=== PATIENT | male | born 1945 | race Caucasian/White ===

== ENCOUNTER → 2017-07-17 | Outpatient (CLI) | payer MEDICARE ==
[~2017-07-17] MED LIST: ASPI81TA23 PO; CETI10CA3 PO; FAMO1TAB37 PO; IBUP1TAB5 PO; LEVO50TA4 PO; LISI10TA3 PO; SIMV40TA PO
[2017-07-17 12:04] LABS: AUTOMATED NEUTROPHIL # 3.5 TH/MM3 (1.8-7.7); BASOPHIL # 0.1 TH/MM3 (0-0.2); BASOPHIL % 1.4 % (0.0-2.0); EOSINOPHIL # 0.4 TH/MM3 (0-0.4); EOSINOPHIL % 5.1 % (0.0-4.0); HEMATOCRIT 44.8 % (39.0-51.0); HEMOGLOBIN 15.4 GM/DL (13.0-17.0); LYMPH % 30.5 % (9.0-44.0); LYMPHOCYTE # 2.2 TH/MM3 (1.0-4.8); MEAN CELL VOLUME 93.9 FL (80.0-100.0); MEAN CORPUSCULAR HEMOGLOBIN 32.4 PG (27.0-34.0); MEAN CORPUSCULAR HGB CONC 34.4 % (32.0-36.0); MEAN PLATELET VOLUME 9.7 FL (7.0-11.0); MONO % 13.9 % (0.0-8.0); NEUT % 49.1 % (16.0-70.0); PLATELET COUNT 168 TH/MM3 (150-450); RED BLOOD COUNT 4.77 MIL/MM3 (4.50-5.90); RED CELL DISTRIBUTION WIDTH 13.5 % (11.6-17.2); WHITE BLOOD COUNT 7.1 TH/MM3 (4.0-11.0)
[2017-07-17 12:04] LABS: BILIRUBIN, URINE NEG (NEG); BLOOD, URINE NEG (NEG); GLUCOSE,URINE NEG (NEG); KETONE, URINE NEG (NEG); NITRITE,URINE NEG (NEG); PH, URINE 5.5 (5.0-8.5); URINE COLOR LIGHT-YELLOW (YELLW/STRAW); URINE LEUKOCYTE ESTERASE NEG (NEG)
[2017-07-17 12:12] LABS: INTERNATIONAL NORMALIZED RATIO 1.1 RATIO; PROTHROMBIN TIME - PATIENT 10.7 SEC (9.8-11.6)
--- NOTE | 2017-07-17 12:17 | RADRPT ---
EXAM DATE/TIME: 07/17/2017 12:04 [facility] COMPARISON: No previous studies available for comparison. INDICATIONS : Evaluate for pneumonia, pneumothorax and communicable diseases. Pre-op CABG MEDICAL HISTORY : Hypertension. Hypercholesterolemia. SURGICAL HISTORY : Hernia repair ENCOUNTER: Initial ACUITY: 1 day PAIN SCORE: 0/10 LOCATION: chest FINDINGS: PA and lateral views of the chest demonstrate the lungs to be symmetrically aerated without evidence of mass, infiltrate or effusion. The cardiomediastinal contours are unremarkable. Osseous structure s are intact. CONCLUSION: No acute disease. Mustapha Vazquez MD on July 17, 2017 at 12:15 Board Certified Radiologist. This report was verified electronically.
[2017-07-17 12:22] LABS: BICARBONATE 27.7 MEQ/L (21.0-32.0); BLOOD UREA NITROGEN 13 MG/DL (7-18); CALCIUM 9.1 MG/DL (8.5-10.1); CHLORIDE 105 MEQ/L (98-107); CREATININE 0.98 MG/DL (0.60-1.30); GLOMERULAR FILTRATION RATE 76 ML/MIN (>89); GLUCOSE,FASTING 87 MG/DL (74-99); SODIUM (NA) 139 MEQ/L (136-145)
[2017-07-17 16:15] LABS: HEMOGLOBIN A1C 5.3 % (4.3-6.0)
--- NOTE | 2017-07-18 23:52 | EKG ---
Date Performed: 07/17/2017 Time Performed: 11:18:05 PTAGE: 72 years EKG: Sinus rhythm RIGHT BUNDLE BRANCH BLOCK ABNORMAL ECG NO PREVIOUS TRACING DOCTOR: Deshawn Khalil Interpretating Date/Time 07/18/2017 23:47:59
--- NOTE | 2017-07-19 09:23 | RSPPFT ---
DATE OF PROCEDURE: 07/17/17 COMMENTS: VOLUMES DYNAMIC: FVC and FEV1 normal. FLOWS: FEV1% normal, FEF 25-75 mildly reduced. IMPRESSION: Very mild terminal airflow obstruction.
== END ==
LOC: CPRE 10:43
PROVIDERS: ATTEND Thoracic Surgery (Cardiothoracic Vascular Surgery)
DX: Z01.812 Encounter for preprocedural laboratory examination (principal); Z01.810 Encounter for preprocedural cardiovascular examination; Z01.811 Encounter for preprocedural respiratory examination; I25.10 Atherosclerotic heart disease of native coronary artery without angina pectoris
CPT/HCPCS: 36415; 71046; 80048; 81001; 83036; 85025; 85610; 85730; 86850; 86900; 86901; 87640; 87641; 93005; 94010

== ENCOUNTER 2017-07-24 05:18 | Inpatient (IN) | payer MEDICARE ==
[2017-07-24] VITALS (9 sets, daily range): BP systolic 98–121; BP diastolic 53–72; PULSE 63–81; RESP 12–22; TEMP 97.9–98.8; O2SAT 95–98
[~2017-07-24] VITALS: Ht 175.3 cm; Wt 108.0 kg
[2017-07-24] MEDS ORDERED: METOPROLOL TARTRATE 25 MG TAB PO PRN (05:45)
[2017-07-24] MEDS ORDERED: SODIUM CHLORID 0.9% 500 ML IV PRN (05:45)
[2017-07-24] MEDS: LACTATED RINGER'S 1000 ML IV PRN ×2 (05:45→13:34)
[2017-07-24] MEDS ORDERED: DEXTROSE 50% IN WATER 50 ML VIAL(D50) IV PUSH PRN ×2 (05:45→14:00)
[2017-07-24] MEDS ORDERED: CHLORHEXIDINE GLUCONATE 2 % 1 PACK (2 CLOTHS) TOPICAL PRN (05:45)
[2017-07-24] MEDS: POVIDONE IODINE 5% (ANTISEPSIS KIT) 4 APPLICATIONS EACH NARE PRN ×3 (06:00→13:36)
[2017-07-24] MEDS: METOPROLOL TARTRATE 25 MG TAB PO SCH ×3 (06:10→13:36)
[2017-07-24] MEDS ORDERED: methylPREDNISolone SOD SUCC 125 MG/2 ML VIAL ONE (06:18)
[2017-07-24] MEDS ORDERED: HEPARIN SODIUM - SQ 10,000 UNITS/ML VIAL ONE ×4 (06:19→06:26)
[2017-07-24] MEDS ORDERED: VANCOMYCIN HCL 1000 MG VIAL ONE ×2 (06:19→06:26)
[2017-07-24] MEDS: VANCOMYCIN 1750 MG/NS 500 ML IV SCH ×6 (06:30→13:36)
[2017-07-24] MEDS ORDERED: INSULIN REGULAR 100 UNITS in NS 100 ML IV PRN (07:00)
[2017-07-24] MEDS: MUPIROCIN 2% OINT 22 GM TUBE EACH NARE SCH ×2 (09:00→21:00)
[2017-07-24] MEDS: PAPAVERINE 60 MG-NITROGLYCERIN 100 MCG-DILTIAZEM 100 MG in NS 100 ML IRRIGATION SCH ×12 (10:10→13:36)
[2017-07-24] MEDS: VANCOMYCIN 1000 MG in NS IRR BTL 1000 ML IRRIGATION SCH ×3 (10:11→13:36)
[2017-07-24] MEDS ORDERED: PHENYLEPHRINE HCL 10 MG/ML VIAL IV ONE (12:00)
[2017-07-24] MEDS ORDERED: ePHEDrine/NS 25 MG/5 ML SYRINGE IV ONE (12:00)
[2017-07-24] MEDS ORDERED: VECURONIUM BROMIDE 10 MG VIAL IV ONE (12:00)
[2017-07-24] MEDS ORDERED: PHENYLEPH/NS 1000 MCG/10 ML SYR IV ONE (12:00)
[2017-07-24] MEDS ORDERED: NITROGLYCERIN 50 MG/DEXTROSE 5% SOLN 250 ML BTL IV ONE (12:00)
[2017-07-24] MEDS ORDERED: LACTATED RINGER'S 1000 ML INJ 2,000 ML IV ONE (12:00)
[2017-07-24] MEDS ORDERED: SODIUM CHLORID 0.9% 500 ML INJ 500 ML IV ONE (12:00)
[2017-07-24] MEDS ORDERED: HEPARIN SODIUM - SQ 10,000 UNITS/ML VIAL OTHER ONE (12:00)
[2017-07-24] MEDS ORDERED: DEXMEDETOMIDINE HCL 200 MCG/2 ML VIAL IV ONE (12:00)
[2017-07-24] MEDS ORDERED: SODIUM BICARBONATE 8.4% INJ 50 MEQ/50 ML SYR IV ONE (12:00)
[2017-07-24] MEDS ORDERED: NORMOSOL R INJ 2,000 ML IV ONE (12:00)
[2017-07-24] MEDS ORDERED: MAGNESIUM SULFATE 1 GM/2 ML VIAL IV ONE (12:00)
[2017-07-24] MEDS ORDERED: NS 100 ML (PAB BAG) 100 ML IV ONE (12:00)
[2017-07-24] MEDS ORDERED: PROTAMINE SULFATE 250 MG/25 ML VIAL IV ONE (12:00)
[2017-07-24] MEDS ORDERED: SODIUM CHLOR 0.9% 250 ML INJ 250 ML IV ONE (12:00)
[2017-07-24] MEDS ORDERED: ACETAMINOPHEN 1000 MG/100 ML 100 ML IV ONE (12:19)
[2017-07-24] MEDS ORDERED: METOPROLOL TARTRATE 5 MG/5 ML VIAL IV PUSH PRN (12:30)
--- NOTE | 2017-07-24 12:38 | PD.OP ---
cc: Hugo Lemus MD Operative Report Date of Surgery: Jul 24, 2017 Preoperative Diagnosis: Postoperative Diagnosis: Procedure: 1. Urgent Off-pump Coronary Artery Bypass Grafting x 4 with Left Internal Mammary Artery (THOMAS) to the Left Anterior Descending (LAD), reverse saphenous vein graft to the Diagonal 1 (D1), reverse saphenous vein graft to the Obtuse Marginal 1 (OM1), reverse saphenous vein graft to the Posterolateral Branch ( RPLB) of the Right Coronary Artery (RCA) 2. Right Leg Endoscopic Vein [place] 3. Intraoperative Vein Mapping Surgeon: Hugo Lemus Skoog Operator(s): Sancho Youngblood Operation and Findings: PREPROCEDURE DIAGNOSES 1. Multi-Vessel Coronary Artery Disease. 2. Preserved Ventricular Function POSTPROCEDURE DIAGNOSES Same SURGICAL PROCEDURE 1. Urgent Off-pump Coronary Artery Bypass Grafting x 4 with Left Internal Mammary Artery (THOMAS) to the Left Anterior Descending (LAD), reverse saphenous vein graft to the Diagonal 1 (D1), reverse saphenous vein graft to the Obtuse Marginal 1 (OM1), reverse saphenous vein graft to the Posterolateral Branch ( RPLB) of the Right Coronary Artery (RCA) 2. Right Leg Endoscopic Vein [place] 3. Intraoperative Vein Mapping SURGEON Hugo Lemus MD EXPORT COORDINATOR IMELDA Esquivel ANESTHESIA General endotracheal LOCKER ROOM ATTENDANT BOBBY Miramontes MD PREPARATION ChloraPrep. COUNTS Needle, sponge, and instrument counts were correct. DRAINS Two 32-Welsh mediastinal tubes. COMPLICATIONS None. INDICATIONS FOR PROCEDURE The patient is a 72-year-old initially presenting with multi-vessel coronary artery disease. He is being brought to the operating room for surgical revascularization therapy. PROCEDURE Patient was brought to the operating room and placed supine on the OR table. Following the induction of adequate general endotracheal anesthesia and placement of appropriate monitoring devices, intraoperative vein mapping was performed which revealed suitable-caliber conduit in the both legs. The patient was then prepped and draped in standard sterile fashion. Next, 2500 units of intravenous heparin was given. Right leg greater saphenous veins were harvested endoscopically. This appeared to be a good-caliber conduit. Simultaneously, a median sternotomy was performed and the left internal mammary artery dissected free off the posterior sternal table. The patient was systemically heparinized and anticoagulation monitored by serial ACT measurements. The internal mammary artery had good pulsatile flow in it and was an excellent-caliber conduit. The pericardium was then divided in the midline, the cradle created and targets analyzed. At this point, all anastomoses were performed in a beating-heart fashion using the Maquet stabilizing system. The left internal mammary artery was anastomosed to the distal LAD (2 mm) in an end-to-side fashion using 7-0 Prolene. The next segment was anastomosed to the D1 (1.75 mm) in an end-to-side fashion using a running 7-0 Prolene. The next segment was anastomosed to the OM1 (2 mm) in an end-to-side fashion using a running 7-0 Prolene. The final segment was anastomosed to the RPLB (1.75 mm) in an end-to-side fashion using a running 7-0 Prolene. The proximal anastomoses were then constructed to the ascending aorta in a running manner using 6-0 Prolene. All anastomotic sites were inspected and appeared to be hemostatic and patent. Protamine solution was given. Strict hemostasis was assured. The closure was undertaken. 2 chest tubes were placed. The pericardium was reapproximated in the midline. The sternum was approximated using sternal wires. The muscular and fascial layer were then closed in 3 layers. The endoscopic vein harvest sites were closed in 2 layers. The patient tolerated the procedure well and was transferred to CVICU in stable condition. Hugo Lemus MD Jul 24, 2017 12:38
[2017-07-24] MEDS ORDERED: DO NOT ADM ANY ANTICOAGULANT DRUGS PRN (12:56)
[2017-07-24] MEDS ORDERED: SODIUM BICARBONATE 8.4% INJ 50 MEQ/50 ML SYR ONE (13:24)
[2017-07-24] MEDS: CHLORHEXIDINE GLUCONATE 4% SOLN 120 ML BTL TOPICAL SCH ×2 (13:34→13:36)
[2017-07-24] MEDS ORDERED: MIDAZOLAM HCL 2 MG/2 ML VIAL ONE ×2 (13:37→13:38)
[2017-07-24] MEDS ORDERED: fentaNYL CITRATE 250 MCG/5 ML AMP ONE ×2 (13:38→13:39)
[2017-07-24] MEDS: ALBUMIN 5% INJ 250 ML IV PRN ×2 (13:48→14:51)
--- NOTE | 2017-07-24 13:50 | RADRPT ---
EXAM DATE/TIME: 07/24/2017 13:14 [facility] COMPARISON: CHEST PA & LAT, July 17, 2017, 12:04. INDICATIONS : Post CABG. MEDICAL HISTORY : Hypertension. Hypercholesterolemia. SURGICAL HISTORY : Hernia repair. ENCOUNTER: Initial ACUITY: 1 day PAIN SCORE: Non-responsive. LOCATION: Bilateral chest FINDINGS: Status post CABG. Support devices are in place and in good position. There is no pneumothorax. There is some mild atelectasis in the left lung base. The heart size is within normal limits. CONCLUSION: Satisfactory postoperative view of the chest. Catarino De Guzman MD on July 24, 2017 at 13:47 Board Certified Radiologist. This report was verified electronically.
[2017-07-24] MEDS ORDERED: POTASSIUM CHLOR 20 MEQ PREMIX 100 ML IV PRN ×3 (14:00)
[2017-07-24] MEDS ORDERED: ACETAMINOPHEN 650 MG SUPP RECTAL PRN (14:00)
[2017-07-24] MEDS ORDERED: SODIUM BICARBONATE 8.4% SOLN 50 MEQ/50 ML VIAL IV PUSH PRN ×2 (14:00)
[2017-07-24] MEDS ORDERED: CALCIUM CHLORIDE INJ 1 GM in SODIUM CHLORIDE 0.9% INJ 100 ML IV PRN (14:00)
[2017-07-24] MEDS ORDERED: Post-op Orders (for Pharmacy) OTHER ONE (14:00)
[2017-07-24] MEDS ORDERED: MAGNESIUM SULFATE INJ 2 GM in SODIUM CHLORIDE 0.9% INJ 100 ML IV PRN ×4 (14:00)
[2017-07-24] MEDS ORDERED: ACETAMINOPHEN 325 MG TAB PO PRN (14:00)
[2017-07-24] MEDS ORDERED: ONDANSETRON HCL 4 MG/2 ML VIAL IV PUSH PRN (14:00)
[2017-07-24] MEDS ORDERED: MORPHINE SULFATE 2 MG/ML INJ IV PUSH PRN (14:00)
[2017-07-24] MEDS ORDERED: hydrALAZINE HCL 20 MG/ML VIAL IV PUSH PRN (14:00)
[2017-07-24] MEDS ORDERED: SODIUM CHLORIDE 0.9% FLUSH 10 ML FLUSH IV FLUSH PRN (14:00)
[2017-07-24] MEDS: ACETAMINOPHEN 1000 MG/100 ML 100 ML IV SCH ×2 (14:00→20:00)
[2017-07-24] MEDS ORDERED: RESP: RACEPINEPHRINE 2.25% 0.5 ML NEB NEB PRN ×2 (14:00→14:45)
[2017-07-24] MEDS ORDERED: LACTATED RINGER'S 1000 ML INJ 500 ML IV PRN (14:00)
[2017-07-24] MEDS ORDERED: CLEVIDIPINE INJ 50 ML IV PRN (14:00)
[2017-07-24] MEDS ORDERED: POTASSIUM CHLORIDE 20 MEQ CONTROLLED RELEASE TAB PO PRN ×2 (14:00)
[2017-07-24] MEDS ORDERED: CALCIUM CHLORIDE 10% 1 GRAM/10 ML VIAL IV PUSH PRN (14:00)
[2017-07-24] MEDS ORDERED: MEPERIDINE HCL 25 MG/ML VIAL IV PUSH PRN (14:30)
[2017-07-24] MEDS ORDERED: NITROGLYCERIN-D5W 50 MG/250 ML 250 ML IV PRN (14:30)
[2017-07-24] MEDS ORDERED: PHENYLEPHRINE INJ 40 MG in DEXTROSE 5% IN WATE 500 ML INJ 496 ML IV PRN ×2 (14:30)
[2017-07-24] MEDS ORDERED: INSULIN REGULAR (IV INFUSION) 100 UNITS in SODIUM CHLORIDE 0.9% INJ 99 ML IV PRN (14:30)
[2017-07-24] MEDS ORDERED: DOPamine 800 MG/500 ML INJ 500 ML IV PRN (14:30)
[2017-07-24] MEDS ORDERED: DEXMEDETOMIDINE INJ 200 MCG in SODIUM CHLORIDE 0.9% INJ 50 ML IV PRN (14:30)
[2017-07-24] MEDS ORDERED: DOBUTamine PREMIX DRIP 250 ML IV PRN (14:30)
[2017-07-24] MEDS ORDERED: RESP: ALBUTEROL 2.5 MG/IPRATROPIUM 0.5 MG NEB (PRN) NEB (14:30)
[2017-07-24] MEDS: RESP: ALBUTEROL 2.5 MG/IPRATROPIUM 0.5 MG NEB (SCH) NEB ×2 (16:18→21:58)
[2017-07-24] MEDS: KETOROLAC TROMETHAMINE 30 MG/ML (IVP) VIAL IV PUSH PRN ×2 (16:59→23:00)
[2017-07-24] MEDS ORDERED: VANCOMYCIN INJ 1,250 MG in SODIUM CHLOR 0.9% 250 ML INJ 250 ML IV SCH (18:00)
[2017-07-24] MEDS: VANCOMYCIN INJ 1,250 MG in SODIUM CHLOR 0.9% 250 ML INJ 250 ML IV SCH (19:31)
[2017-07-24] MEDS: ACETAMINOPHEN/HYDROcodone 325 MG/5 MG TAB PO PRN ×2 (19:50→23:00)
[2017-07-24] MEDS: SODIUM CHLORIDE 0.9% FLUSH 10 ML FLUSH IV FLUSH SCH (21:00)
[2017-07-24] MEDS: PRAVASTATIN SOD 80 MG TAB PO SCH (21:00)
[2017-07-25] VITALS (20 sets, daily range): BP systolic 101–130; BP diastolic 41–69; PULSE 80–103; RESP 16–18; TEMP 97.4–98.8; O2SAT 92–98
[2017-07-25] MEDS: ACETAMINOPHEN 1000 MG/100 ML 100 ML IV SCH ×2 (02:00→08:34)
[2017-07-25] MEDS: RESP: ALBUTEROL 2.5 MG/IPRATROPIUM 0.5 MG NEB (SCH) NEB ×4 (02:57→19:44)
[2017-07-25] MEDS: ACETAMINOPHEN/HYDROcodone 325 MG/5 MG TAB PO PRN ×5 (04:35→21:42)
[2017-07-25 04:45] LABS: HEMATOCRIT 35.5 % (39.0-51.0); HEMOGLOBIN 12.1 GM/DL (13.0-17.0); MEAN CELL VOLUME 92.2 FL (80.0-100.0); MEAN CORPUSCULAR HEMOGLOBIN 31.4 PG (27.0-34.0); MEAN CORPUSCULAR HGB CONC 34.1 % (32.0-36.0); MEAN PLATELET VOLUME 9.8 FL (7.0-11.0); PLATELET COUNT 102 TH/MM3 (150-450); RED BLOOD COUNT 3.85 MIL/MM3 (4.50-5.90); RED CELL DISTRIBUTION WIDTH 13.6 % (11.6-17.2); WHITE BLOOD COUNT 10.7 TH/MM3 (4.0-11.0)
--- NOTE | 2017-07-25 05:05 | RADRPT ---
EXAM DATE/TIME: 07/25/2017 03:19 [facility] COMPARISON: CHEST SINGLE AP, July 24, 2017, 13:14. INDICATIONS : Post CABG. MEDICAL HISTORY : Hypertension. Hypercholesterolemia. SURGICAL HISTORY : None. ENCOUNTER: Subsequent ACUITY: 2 days PAIN SCORE: Non-responsive. LOCATION: Bilateral chest FINDINGS: Interval extubation and removal of gastric tube. Bilateral chest tubes and central line stable in po sition. Persistent patchy infiltrates in the medial left lower lung. Both hemidiaphragms are well d elineated. The remainder of the lungs are clear. CONCLUSION: Persistent patchy infiltrates medial left lower lung. Gerry Frazier MD on July 25, 2017 at 4:59 Board Certified Radiologist. This report was verified electronically.
[2017-07-25 05:12] LABS: BICARBONATE 20.9 MEQ/L (21.0-32.0); CALCIUM 8.2 MG/DL (8.5-10.1); CREATININE 0.72 MG/DL (0.60-1.30); MAGNESIUM 1.9 MG/DL (1.5-2.5)
[2017-07-25] MEDS: PANTOPRAZOLE SOD 40 MG DELAYED RELEASE TAB PO SCH (06:04)
[2017-07-25] MEDS: LEVOTHYROXINE SODIUM 50 MCG TAB PO SCH (06:04)
[2017-07-25] MEDS: VANCOMYCIN INJ 1,250 MG in SODIUM CHLOR 0.9% 250 ML INJ 250 ML IV SCH ×2 (06:04→17:23)
--- NOTE | 2017-07-25 07:26 | PD.CAR.PN ---
CVT Progress Note Subjective/Hospital Course: 72 yo gentleman with multi-vessel disease identified by Dr. Bell, presenting for off-pump CABG 07/24 SURGICAL PROCEDURE 1. Urgent Off-pump Coronary Artery Bypass Grafting x 4 with Left Internal Mammary Artery (THOMAS) to the Left Anterior Descending (LAD), reverse saphenous vein graft to the Diagonal 1 (D1), reverse saphenous vein graft to the Obtuse Marginal 1 (OM1), reverse saphenous vein graft to the Posterolateral Branch ( RPLB) of the Right Coronary Artery (RCA) 2. Right Leg Endoscopic Vein [place] 3. Intraoperative Vein Mapping 07/25 Doing well Extubated and tolerating well Off drips Transfer CPCU Maintain CT Monitor urine output Objective: Vital Signs Date Time Temp Pulse Resp B/P (MAP) Pulse Ox O2 Delivery O2 Flow Rate FiO2 07/25/17 03:00 98.8 83 16 109/66 (80) 98 108/52 (70) 07/25/17 03:00 80 07/25/17 03:00 94 Nasal Cannula 3.00 07/24/17 23:00 95 Nasal Cannula 3.00 07/24/17 23:00 98.6 75 12 98/68 (78) 95 109/53 (71) 07/24/17 23:00 80 07/24/17 23:00 80 07/24/17 22:00 96 Nasal Cannula 3.00 07/24/17 19:00 98.8 63 16 101/72 (82) 97 121/59 (79) 07/24/17 19:00 94 Nasal Cannula 3.00 07/24/17 19:00 66 07/24/17 19:00 66 07/24/17 17:30 98.6 07/24/17 16:00 96 Nasal Cannula 4.00 07/24/17 16:00 96 Nasal Cannula 4 07/24/17 16:00 97 Mechanical Ventilator 4.00 Nasal Cannula 07/24/17 15:29 98 50 07/24/17 15:00 98 Mechanical Ventilator 50 07/24/17 15:00 64 07/24/17 15:00 50 07/24/17 15:00 97.9 68 16 102/68 (79) 98 104/56 (72) 07/24/17 14:45 73 103/53 07/24/17 13:04 95 50 07/24/17 13:00 98.4 81 22 105/67 (80) 95 115/55 (75) 07/24/17 13:00 95 Mechanical Ventilator 50 07/24/17 13:00 98.6 07/24/17 13:00 81 07/24/17 13:00 50 Labs: Laboratory Tests Test 07/25/17 04:20 White Blood Count 10.7 TH/MM3 (4.0-11.0) Red Blood Count 3.85 MIL/MM3 (4.50-5.90) Hemoglobin 12.1 GM/DL (13.0-17.0) Hematocrit 35.5 % (39.0-51.0) Mean Corpuscular Volume 92.2 FL (80.0-100.0) Mean Corpuscular Hemoglobin 31.4 PG (27.0-34.0) Mean Corpuscular Hemoglobin Concent 34.1 % (32.0-36.0) Red Cell Distribution Width 13.6 % (11.6-17.2) Platelet Count 102 TH/MM3 (150-450) Mean Platelet Volume 9.8 FL (7.0-11.0) Blood Urea Nitrogen 19 MG/DL (7-18) Creatinine 0.72 MG/DL (0.60-1.30) Random Glucose 138 MG/DL (74-106) Calcium Level 8.2 MG/DL (8.5-10.1) Magnesium Level 1.9 MG/DL (1.5-2.5) Sodium Level 139 MEQ/L (136-145) Potassium Level 4.3 MEQ/L (3.5-5.1) Chloride Level 108 MEQ/L (98-107) Carbon Dioxide Level 20.9 MEQ/L (21.0-32.0) Anion Gap 10 MEQ/L (5-15) Estimat Glomerular Filtration Rate 108 ML/MIN (>89) Result Diagram: 07/25/17 0420 07/25/17 0420 (1) S/P CABG x 4 (2) CAD (coronary artery disease), [place] coronary artery Problem Qualifiers (1) CAD (coronary artery disease), [place] coronary artery: Hugo Lemus MD Jul 25, 2017 07:26
[2017-07-25] MEDS ORDERED: DEXTROSE 50% IN WATER 50 ML VIAL(D50) IV PUSH PRN (07:30)
[2017-07-25] MEDS ORDERED: SOD PHOSPHATE/SOD BIPHOSPHATE (ADULT) ENEMA 133ML RECTAL PRN (08:30)
[2017-07-25] MEDS ORDERED: GLUCAGON 1 MG/ML VIAL OTHER PRN (08:30)
[2017-07-25] MEDS ORDERED: BISACODYL 10 MG SUPP RECTAL PRN (08:30)
[2017-07-25] MEDS: CLOPIDOGREL 75 MG TAB PO SCH (08:34)
[2017-07-25] MEDS: MULTIVITAMINS/MINERALS THERAPEUTIC TAB PO SCH (08:34)
[2017-07-25] MEDS: MAGNESIUM HYDROXIDE SUSP 30 ML CUP PO SCH (08:34)
[2017-07-25] MEDS: ASPIRIN 81 MG CHEW TAB PO SCH (08:34)
[2017-07-25] MEDS: SODIUM CHLORIDE 0.9% FLUSH 10 ML FLUSH IV FLUSH SCH ×2 (09:00→21:46)
[2017-07-25] MEDS: INSULIN ASPART SUPPLEMENTAL SCALE SQ SCH ×4 (10:00→21:45)
[2017-07-25] MEDS: MUPIROCIN 2% OINT 22 GM TUBE EACH NARE SCH ×2 (10:02→21:00)
--- NOTE | 2017-07-25 20:20 | EKG ---
Date Performed: 07/25/2017 Time Performed: 05:22:10 PTAGE: 72 years EKG: Sinus rhythm Right bundle branch block Generalized low QRS voltages Abnormal ECG PREVIOUS TRACING : 07/17/2017 11.18 Since the previous tracing, no significant change noted DOCTOR: Deshawn Khalil Interpretating Date/Time 07/25/2017 20:18:45
[2017-07-25] MEDS ORDERED: diphenhydrAMINE HCL 50 MG CAP PO PRN (21:00)
[2017-07-25] MEDS: DOCUSATE SODIUM 100 MG CAP PO SCH (21:42)
[2017-07-25] MEDS: PRAVASTATIN SOD 80 MG TAB PO SCH (21:42)
[2017-07-25] MEDS: SENNOSIDES 8.6 MG TAB PO SCH (21:42)
[2017-07-26] VITALS (30 sets, daily range): BP systolic 103–123; BP diastolic 66–80; PULSE 85–149; RESP 16–20; TEMP 97.9–98.4; O2SAT 91–96
[2017-07-26] MEDS: INSULIN ASPART SUPPLEMENTAL SCALE SQ SCH ×6 (02:00→20:55)
[2017-07-26] MEDS: KETOROLAC TROMETHAMINE 30 MG/ML (IVP) VIAL IV PUSH PRN (02:04)
[2017-07-26 05:27] LABS: AUTOMATED NEUTROPHIL # 8.6 TH/MM3 (1.8-7.7); BASOPHIL % 0.3 % (0.0-2.0); EOSINOPHIL # 0.1 TH/MM3 (0-0.4); EOSINOPHIL % 0.5 % (0.0-4.0); HEMATOCRIT 32.4 % (39.0-51.0); HEMOGLOBIN 11.1 GM/DL (13.0-17.0); LYMPH % 12.7 % (9.0-44.0); LYMPHOCYTE # 1.5 TH/MM3 (1.0-4.8); MEAN CELL VOLUME 92.4 FL (80.0-100.0); MEAN CORPUSCULAR HEMOGLOBIN 31.6 PG (27.0-34.0); MEAN CORPUSCULAR HGB CONC 34.3 % (32.0-36.0); MONO % 13.4 % (0.0-8.0); MONOCYTE # 1.6 TH/MM3 (0-0.9); NEUT % 73.1 % (16.0-70.0); PLATELET COUNT 94 TH/MM3 (150-450); RED BLOOD COUNT 3.51 MIL/MM3 (4.50-5.90); RED CELL DISTRIBUTION WIDTH 13.5 % (11.6-17.2); WHITE BLOOD COUNT 11.7 TH/MM3 (4.0-11.0)
[2017-07-26] MEDS: LEVOTHYROXINE SODIUM 50 MCG TAB PO SCH (05:46)
[2017-07-26] MEDS: PANTOPRAZOLE SOD 40 MG DELAYED RELEASE TAB PO SCH (05:46)
[2017-07-26 05:58] LABS: BICARBONATE 24.6 MEQ/L (21.0-32.0); CALCIUM 8.5 MG/DL (8.5-10.1); CREATININE 0.98 MG/DL (0.60-1.30); MAGNESIUM 2.3 MG/DL (1.5-2.5)
[2017-07-26] MEDS: RESP: ALBUTEROL 2.5 MG/IPRATROPIUM 0.5 MG NEB (SCH) NEB ×3 (07:26→19:52)
[2017-07-26] MEDS: ACETAMINOPHEN/HYDROcodone 325 MG/5 MG TAB PO PRN ×4 (08:36→22:19)
[2017-07-26] MEDS: CLOPIDOGREL 75 MG TAB PO SCH (08:36)
[2017-07-26] MEDS: MULTIVITAMINS/MINERALS THERAPEUTIC TAB PO SCH (08:36)
[2017-07-26] MEDS: MAGNESIUM HYDROXIDE SUSP 30 ML CUP PO SCH (08:36)
[2017-07-26] MEDS: DOCUSATE SODIUM 100 MG CAP PO SCH ×2 (08:36→20:55)
[2017-07-26] MEDS: POLYETHYLENE GLYCOL 17 GM PKG PO SCH (08:36)
[2017-07-26] MEDS: SODIUM CHLORIDE 0.9% FLUSH 10 ML FLUSH IV FLUSH SCH ×2 (08:37→20:55)
[2017-07-26] MEDS: MUPIROCIN 2% OINT 22 GM TUBE EACH NARE SCH ×2 (08:37→20:55)
[2017-07-26] MEDS: ASPIRIN 81 MG CHEW TAB PO SCH (08:37)
[2017-07-26] MEDS ORDERED: FUROSEMIDE 40 MG/4 ML VIAL IV PUSH ONE (10:30)
[2017-07-26] MEDS ORDERED: POTASSIUM CHLORIDE 20 MEQ CONTROLLED RELEASE TAB PO ONE (10:30)
[2017-07-26] MEDS: METOPROLOL TARTRATE 25 MG TAB PO SCH ×2 (10:49→20:55)
[2017-07-26 11:55] LABS: PHOSPHORUS 1.9 MG/DL (2.5-4.9)
[2017-07-26] MEDS ORDERED: AMIODARONE INJ 150 MG in DEXTROSE 5% IN WATER 100ML INJ 97 ML IV ONE ×2 (16:09)
[2017-07-26] MEDS ORDERED: AMIODARONE INJ 450 MG in DEXTROSE 5% IN WATE(EXCEL) INJ 241 ML IV PRN ×2 (16:19)
[2017-07-26] MEDS ORDERED: AMIODARONE INJ 450 MG in SODIUM CHLOR 0.9% (EXCEL) INJ 241 ML IV PRN (16:30)
--- NOTE | 2017-07-26 16:50 | PD.CAR.PN ---
CVT Progress Note Subjective/Hospital Course: 72 yo gentleman with multi-vessel disease identified by Dr. Bell, presenting for off-pump CABG PMH: arthritis, HTN, HLP, hypothyroidism, RBBB 07/24 SURGICAL PROCEDURE 1. Urgent Off-pump Coronary Artery Bypass Grafting x 4 with Left Internal Mammary Artery (THOMAS) to the Left Anterior Descending (LAD), reverse saphenous vein graft to the Diagonal 1 (D1), reverse saphenous vein graft to the Obtuse Marginal 1 (OM1), reverse saphenous vein graft to the Posterolateral Branch ( RPLB) of the Right Coronary Artery (RCA) 2. Right Leg Endoscopic Vein [place] 3. Intraoperative Vein Mapping 07/25 Doing well Extubated and tolerating well Off drips Transfer CPCU Maintain CT Monitor urine output 07/26 + lower ext edema , + weight dose of lasix given, weaning 02 went into afib this afternoon, now on amiodarone protocol Objective: GENERAL: A&O x 3 SKIN: Warm and dry. prevena to chest , incision intact right leg HEAD: Normocephalic. EYES: No scleral icterus. No injection or drainage. NECK: Supple, trachea midline. No JVD or lymphadenopathy. CARDIOVASCULAR: irregular rate and rhythm without murmurs, gallops, or rubs. + lower ext edema RESPIRATORY: Breath sounds equal bilaterally. No accessory muscle use. GASTROINTESTINAL: Abdomen soft, non-tender, nondistended. MUSCULOSKELETAL: No cyanosis, or edema. BACK: Nontender without obvious deformity. No CVA tenderness. Vital Signs Date Time Temp Pulse Resp B/P (MAP) Pulse Ox O2 Delivery O2 Flow Rate FiO2 07/26/17 16:00 137 07/26/17 15:23 98.3 94 18 116/66 (83) 93 07/26/17 15:22 93 Room Air 07/26/17 15:00 96 07/26/17 14:00 92 07/26/17 13:00 95 07/26/17 12:00 91 07/26/17 11:18 93 Room Air 07/26/17 11:17 98.4 98 18 123/75 (91) 93 07/26/17 11:00 96 07/26/17 10:00 96 07/26/17 09:00 108 07/26/17 08:00 98 07/26/17 07:26 93 21 07/26/17 07:23 93 Room Air 07/26/17 07:23 98.0 98 18 105/71 (82) 93 07/26/17 07:00 94 07/26/17 06:00 95 07/26/17 05:00 92 07/26/17 04:05 97.9 100 16 123/68 (86) 91 07/26/17 04:05 91 Room Air 07/26/17 04:00 93 07/26/17 03:00 85 07/26/17 02:00 93 07/26/17 01:00 88 07/26/17 00:00 92 07/25/17 23:00 92 Room Air 07/25/17 23:00 97.8 102 16 127/69 (88) 92 07/25/17 23:00 100 07/25/17 22:00 94 07/25/17 21:00 98 07/25/17 20:22 98.4 100 16 130/63 (85) 95 07/25/17 20:22 95 Nasal Cannula 1.00 07/25/17 20:00 94 07/25/17 19:47 98 Nasal Cannula 2.00 07/25/17 19:00 92 07/25/17 18:38 17 07/25/17 18:00 102 07/25/17 17:00 92 Result Diagram: 07/26/1743607/26/17436 Telemetry: NSR> afib (1) S/P CABG x 4 Plan: ASA, plavix, statin, BB OOB ambulate wean 02 pulm toileting (2) CAD (coronary artery disease), [place] coronary artery (3) Afib Plan: on amiodarone protocol Problem Qualifiers (1) CAD (coronary artery disease), [place] coronary artery: Fani Raza Jul 26, 2017 16:50
[2017-07-26] MEDS: PRAVASTATIN SOD 80 MG TAB PO SCH (20:55)
[2017-07-26] MEDS: SENNOSIDES 8.6 MG TAB PO SCH (20:55)
[2017-07-26] MEDS: POTASSIUM PHOSPHATE MONOBASIC 500 MG TAB PO SCH (20:55)
[2017-07-26] MEDS ORDERED: AMIODARONE 150 MG/D5W 97 ML BOLUS 60 MINUTES IV ONE ×2 (23:45)
[2017-07-27] VITALS (31 sets, daily range): BP systolic 112–140; BP diastolic 65–96; PULSE 73–146; RESP 18–20; TEMP 98–98.4; O2SAT 93–97
[2017-07-27] MEDS: ACETAMINOPHEN/HYDROcodone 325 MG/5 MG TAB PO PRN ×5 (01:20→20:47)
[2017-07-27 04:46] LABS: BICARBONATE 28.6 MEQ/L (21.0-32.0); CALCIUM 7.9 MG/DL (8.5-10.1); CREATININE 0.97 MG/DL (0.60-1.30); MAGNESIUM 2.2 MG/DL (1.5-2.5)
[2017-07-27] MEDS: LEVOTHYROXINE SODIUM 50 MCG TAB PO SCH (06:19)
[2017-07-27] MEDS: PANTOPRAZOLE SOD 40 MG DELAYED RELEASE TAB PO SCH (06:19)
[2017-07-27] MEDS: INSULIN ASPART SUPPLEMENTAL SCALE SQ SCH ×4 (08:00→20:48)
[2017-07-27] MEDS: POLYETHYLENE GLYCOL 17 GM PKG PO SCH (08:44)
[2017-07-27] MEDS: MAGNESIUM HYDROXIDE SUSP 30 ML CUP PO SCH (08:44)
[2017-07-27] MEDS: DOCUSATE SODIUM 100 MG CAP PO SCH ×2 (08:44→20:48)
[2017-07-27] MEDS: MULTIVITAMINS/MINERALS THERAPEUTIC TAB PO SCH (08:44)
[2017-07-27] MEDS: POTASSIUM PHOSPHATE MONOBASIC 500 MG TAB PO SCH ×2 (08:45→20:47)
[2017-07-27] MEDS: CLOPIDOGREL 75 MG TAB PO SCH (08:45)
[2017-07-27] MEDS: SODIUM CHLORIDE 0.9% FLUSH 10 ML FLUSH IV FLUSH SCH ×2 (08:45→20:48)
[2017-07-27] MEDS: METOPROLOL TARTRATE 25 MG TAB PO SCH ×2 (08:45→20:47)
[2017-07-27] MEDS: ASPIRIN 81 MG CHEW TAB PO SCH (08:46)
[2017-07-27] MEDS: MUPIROCIN 2% OINT 22 GM TUBE EACH NARE SCH ×2 (08:46→20:48)
--- NOTE | 2017-07-27 15:32 | PD.CAR.PN ---
CVT Progress Note Subjective/Hospital Course: 72 yo gentleman with multi-vessel disease identified by Dr. Bell, presenting for off-pump CABG PMH: arthritis, HTN, HLP, hypothyroidism, RBBB 07/24 SURGICAL PROCEDURE 1. Urgent Off-pump Coronary Artery Bypass Grafting x 4 with Left Internal Mammary Artery (THOMAS) to the Left Anterior Descending (LAD), reverse saphenous vein graft to the Diagonal 1 (D1), reverse saphenous vein graft to the Obtuse Marginal 1 (OM1), reverse saphenous vein graft to the Posterolateral Branch ( RPLB) of the Right Coronary Artery (RCA) 2. Right Leg Endoscopic Vein [place] 3. Intraoperative Vein Mapping 07/25 Doing well Extubated and tolerating well Off drips Transfer CPCU Maintain CT Monitor urine output 07/26 + lower ext edema , + weight dose of lasix given, weaning 02 went into afib this afternoon, now on amiodarone protocol 07/27 pt converted to NSR at 0200 will change to po amiodarone / taper dose weight still up, additional IV lasix , check labs in am eval for dc home in am Objective: GENERAL: A&O x 3 SKIN: Warm and dry. prevena to chest , incision intact right EVH composite layup worker: Normocephalic. EYES: No scleral icterus. No injection or drainage. NECK: Supple, trachea midline. No JVD or lymphadenopathy. CARDIOVASCULAR: Regular rate and rhythm without murmurs, gallops, or rubs. / mild general edema RESPIRATORY: Breath sounds equal bilaterally. No accessory muscle use. diminished in bases GASTROINTESTINAL: Abdomen soft, non-tender, nondistended. MUSCULOSKELETAL: No cyanosis, or edema. BACK: Nontender without obvious deformity. No CVA tenderness. Vital Signs Date Time Temp Pulse Resp B/P (MAP) Pulse Ox O2 Delivery O2 Flow Rate FiO2 07/27/17 15:15 98.0 90 18 126/72 (90) 96 07/27/17 15:14 96 Room Air 07/27/17 15:00 89 07/27/17 14:00 85 07/27/17 13:00 83 07/27/17 12:00 89 07/27/17 11:32 98.1 87 18 122/76 (91) 96 07/27/17 11:11 93 Room Air 07/27/17 11:00 83 07/27/17 10:00 87 07/27/17 09:00 98 07/27/17 08:15 93 21 07/27/17 08:00 96 07/27/17 07:35 98.0 89 18 112/73 (86) 96 07/27/17 07:34 93 Room Air 07/27/17 07:00 85 07/27/17 06:44 91 07/27/17 05:03 82 07/27/17 04:29 83 07/27/17 03:24 88 07/27/17 03:20 Room Air 07/27/17 03:20 98.2 86 20 134/73 (93) 95 07/27/17 02:00 89 07/27/17 01:42 100 07/27/17 00:23 129 107/76 07/27/17 00:07 146 07/26/17 23:21 Room Air 07/26/17 23:21 115 07/26/17 23:21 98.0 128 20 103/80 (88) 95 07/26/17 23:12 135 103/80 07/26/17 22:16 122 07/26/17 21:44 149 07/26/17 20:00 139 07/26/17 19:53 96 07/26/17 19:10 98.4 117 19 116/79 (91) 94 07/26/17 19:10 Room Air 07/26/17 19:10 129 07/26/17 18:00 125 07/26/17 17:41 143 112/68 07/26/17 17:00 112 07/26/17 16:50 138 152/79 07/26/17 16:00 137 Labs: Laboratory Tests Test 07/27/17 04:06 Blood Urea Nitrogen 14 MG/DL (7-18) Creatinine 0.97 MG/DL (0.60-1.30) Random Glucose 104 MG/DL (74-106) Calcium Level 7.9 MG/DL (8.5-10.1) Magnesium Level 2.2 MG/DL (1.5-2.5) Sodium Level 137 MEQ/L (136-145) Potassium Level 4.1 MEQ/L (3.5-5.1) Chloride Level 104 MEQ/L (98-107) Carbon Dioxide Level 28.6 MEQ/L (21.0-32.0) Anion Gap 4 MEQ/L (5-15) Estimat Glomerular Filtration Rate 77 ML/MIN (>89) Result Diagram: 07/26/17 0437 07/27/17 0406 Telemetry: Afib> NSR (1) S/P CABG x 4 Plan: ASA, plavix, statin, BB OOB ambulate wean 02 pulm toileting gentle diuresis (2) CAD (coronary artery disease), [place] coronary artery (3) Afib Plan: on amiodarone protocol > converted to NSR change to taper dose amiodarone Problem Qualifiers (1) CAD (coronary artery disease), [place] coronary artery: Fani Raza Jul 27, 2017 15:32
--- NOTE | 2017-07-27 15:38 | HHI.FF ---
Face to Face Verification Diagnosis: (1) Hyperlipemia (2) Hypertension (3) CAD (coronary artery disease), [place] coronary artery (4) Afib (5) S/P CABG x 4 Home Health Nursing Order: Signs/symptoms of disease process Medication education-adverse effect Wound care and dressing changes Nursing assessment with vital signs Instructions: Heart and Vascular Surgery patients *Special attention to sternal dressing Mandatory frequency Assess and evaluation, 4 days in a row The next week 3X week 2 times a week for 4 weeks 1 time a week for 5 weeks Schedule Heart and Vascular patients for full 60 day certification period Initial visit Review Open Heart Surgery Discharge Instructions (Sternal precautions, Activity, Elastic hose, Incision care, Driving, Incentive spirometry, Smoking, [place], Work and other) Need Betadine to paint incision Medication reconciliation Importance of follow up care/ check on appointments Make calendar record temperature daily When to call [facility] at Home nurse, review instructions, phone list Incentive Spirometry, demonstration Visit 1- Begin discharge instruction for patient family and/ or caregiver using teach back method- Signs and symptoms of infection Disease characteristics Medicines and side effects Foods and nutrition/ appetite Infection control/ hand washing/ hygiene Visit 2- Continue teaching Discharge instructions- include additional information on smoking cessation , sternal dressing (sternal vac) Visit 3- Continue teaching- Cough and deep breathing, incision monitoring. Choose my plate Visit 4- Continue teaching- Discuss limitations Discuss how they are feeling Discuss progress toward goals Remaining visits- continue teaching and monitoring For any questions please call : Sunday 8am-5pm Heart & Vascular Surgery Office ( Dr. Lemus & Dr. Cali), After Hours / Nights (5pm -8am) Weekends and Holidays Please call [facility] Cardiac Intermediate Care Unit (CIC) Charge Nurse PREVENA Single Use Negative Wound Therapy System Caregiver Instruction Sheet 1. A Prevena dressing system was applied to the chest incision during surgery , to promote wound healing. It works via a suction device (negative pressure wound therapy) to remove low to moderate levels of exudate (drainage) and infectious materials. We recommend that the device stay in place for up to seven days, from day of surgery. 2. Day of Surgery___3/ Day of Removal ___3/ 3. The dressing should only be removed by a health care services manager. Please arrange removal of device to coincide with Home Health visit and or with Nursing staff at Rehab 4. If skin reddening or irritation of skin occurs, or excessive drainage, please notify the Cardiovascular Surgeons office at [phone]. 5. Light showering is permissible; however the pump should be disconnected and placed in safe location, where it will not get wet. The dressing should not be exposed to direct spray or submerged in water. No bath tub / shower only. Ensure the end of the tubing attached to the dressing is facing down so that water does not enter the top of the tube. 6. To remove Prevena dressing: press purple button to turn off device / remove the suction. Then disconnect the tubing from the pump. The fixation strips should be stretched away from the skin and the dressing lifted at one corner and peeled back until it has been fully removed. 7. After removal, it is ok to shower daily using liquid dial soap and clean wash cloth, rinse and pat dry, and leave incision open to air dry. For any concerns regarding Prevena dressing, and or wounds, please contact Rosa Melchor, patient navigator at [phone] or notify the Cardiovascular Surgeons office at [phone]. Incentive spirometry Q1 hr x 10, while awake, also use acapella device hourly whole awake Sternal Breast Bone Precautions: NO pushing or pulling, ( pt must use sternal pillow to support chest with all activities and with coughing ( takes up to 3 months breast bone to heal ) Daily incision care: ok to shower daily, no tub bath. Wash all incisions with liquid dial soap, clean wash cloth to each site, rinse and pat dry. Observe for any signs of infection, such as drainage which is dark yellow, rose, green or foul smelling. Immediately report to the surgeon any drainage from the chest incision, or legs, and for any abnormal drainage from the chest tube sites. Notify surgeon if any temp >101.5 degrees F. When specialty dressing removed/ or if you do not have one, continue to shower daily as above, then rinse and pat incision dry and paint with betadine daily x 5 days. Allow steri strips to fall off if you have any. Avoid lotions, creams, salves, oils, etc. for the first month Please see attached forms for additional instructions regarding post Open Heart specialty wound vacuum dressings. JULIO or Prevena , Dressing to be removed by Nursing staff on __07/31/17 F/U appointment: as per MA instructions: PCP in 2 weeks, CV surgeon 2 weeks, Sports Book Board Attendant 3-4 weeks For any questions regarding incisions/ dressing / meds / post op care or above Symptoms, Sunday 8am-5pm Heart & Vascular Surgery Office ( Dr. Lemus & Dr. Cali), After Hours / Nights (5pm -8am) Weekends and Holidays Please call [facility] Cardiac Intermediate Care Unit (CIC) Charge Nurse I have seen patient Antony Ledesma on 07/27/17. My clinical findings support the need for the requested home health care services because: Patient has SOB Deconditioned w/ increased weakness I certify that my clinical findings support that this patient is homebound because: Post-op weakness Fani Raza Jul 27, 2017 15:38
[2017-07-27] MEDS ORDERED: FURO1TAB60 PO (15:47)
[2017-07-27] MEDS ORDERED: THERM PO (15:47)
[2017-07-27] MEDS ORDERED: AMIO200T PO (15:47)
[2017-07-27] MEDS ORDERED: POTA-163 PO (15:47)
[2017-07-27] MEDS ORDERED: HYDR-3516 PO (15:47)
[2017-07-27] MEDS ORDERED: PLAV75TA29 PO (15:47)
[2017-07-27] MEDS ORDERED: DOCU1CAP39 PO (15:47)
[2017-07-27] MEDS ORDERED: METO25TA3 PO (15:47)
--- NOTE | 2017-07-27 15:50 | HHI.DS ---
Discharge Summary Admission Date Jul 24, 2017 at 05:18 Discharge Date: Jul 28, 2017 Admitting Diagnosis chest pain (1) CAD (coronary artery disease), [place] coronary artery Diagnosis: Principal ICD Codes: I25.10 - Atherosclerotic heart disease of [place] coronary artery without angina pectoris (2) Afib Diagnosis: Principal ICD Codes: I48.91 - Unspecified atrial fibrillation (3) Hyperlipemia Diagnosis: Principal ICD Codes: E78.5 - Hyperlipidemia, unspecified (4) Hypertension Diagnosis: Principal ICD Codes: I10 - Essential (primary) hypertension (5) S/P CABG x 4 Diagnosis: Secondary ICD Codes: Z95.1 - Presence of aortocoronary bypass graft Procedures 07/24 1. Urgent Off-pump Coronary Artery Bypass Grafting x 4 with Left Internal Mammary Artery (THOMAS) to the Left Anterior Descending (LAD), reverse saphenous vein graft to the Diagonal 1 (D1), reverse saphenous vein graft to the Obtuse Marginal 1 (OM1), reverse saphenous vein graft to the Posterolateral Branch ( RPLB) of the Right Coronary Artery (RCA) 2. Right Leg Endoscopic Vein [place] 3. Intraoperative Vein Mapping Brief History 72 yo gentleman with multi-vessel disease identified by Dr. Bell, presenting for off-pump CABG PMH: arthritis, HTN, HLP, hypothyroidism, RBBB 07/24 SURGICAL PROCEDURE 1. Urgent Off-pump Coronary Artery Bypass Grafting x 4 with Left Internal Mammary Artery (THOMAS) to the Left Anterior Descending (LAD), reverse saphenous vein graft to the Diagonal 1 (D1), reverse saphenous vein graft to the Obtuse Marginal 1 (OM1), reverse saphenous vein graft to the Posterolateral Branch ( RPLB) of the Right Coronary Artery (RCA) 2. Right Leg Endoscopic Vein [place] 3. Intraoperative Vein Mapping CBC/BMP: 07/26/17 0437 07/27/17 0406 Significant Findings Laboratory Tests Test 07/25/17 04:20 07/26/17 04:37 07/27/17 04:06 Red Blood Count 3.85 MIL/MM3 (4.50-5.90) 3.51 MIL/MM3 (4.50-5.90) Hemoglobin 12.1 GM/DL (13.0-17.0) 11.1 GM/DL (13.0-17.0) Hematocrit 35.5 % (39.0-51.0) 32.4 % (39.0-51.0) Platelet Count 102 TH/MM3 (150-450) 94 TH/MM3 (150-450) Blood Urea Nitrogen 19 MG/DL (7-18) 21 MG/DL (7-18) Random Glucose 138 MG/DL (74-106) 124 MG/DL (74-106) Calcium Level 8.2 MG/DL (8.5-10.1) 7.9 MG/DL (8.5-10.1) Chloride Level 108 MEQ/L (98-107) Carbon Dioxide Level 20.9 MEQ/L (21.0-32.0) White Blood Count 11.7 TH/MM3 (4.0-11.0) Neutrophils (%) (Auto) 73.1 % (16.0-70.0) Monocytes (%) (Auto) 13.4 % (0.0-8.0) Neutrophils # (Auto) 8.6 TH/MM3 (1.8-7.7) Monocytes # (Auto) 1.6 TH/MM3 (0-0.9) Sodium Level 134 MEQ/L (136-145) Estimat Glomerular Filtration Rate 76 ML/MIN (>89) 77 ML/MIN (>89) Phosphorus Level 1.9 MG/DL (2.5-4.9) Anion Gap 4 MEQ/L (5-15) Imaging Last Impressions Chest X-Ray 07/25/17 0500 Signed Impressions: Service Date/Time: Tuesday, July 25, 2017 03:19 - CONCLUSION: Persistent patchy infiltrates medial left lower lung. Gerry Frazier MD PE at Discharge GENERAL: A&O x3 SKIN: Warm and dry. prevena dressing to chest / incision intact eright evh site supervisor: Normocephalic. EYES: No scleral icterus. No injection or drainage. NECK: Supple, trachea midline. No JVD or lymphadenopathy. CARDIOVASCULAR: Regular rate and rhythm without murmurs, gallops, or rubs./ mild general edema RESPIRATORY: Breath sounds equal bilaterally. No accessory muscle use. GASTROINTESTINAL: Abdomen soft, non-tender, nondistended. MUSCULOSKELETAL: No cyanosis, or edema. BACK: Nontender without obvious deformity. No CVA tenderness. Hospital Course 07/25 Doing well Extubated and tolerating well Off drips Transfer [facility] Maintain CT Monitor urine output 07/26 + lower ext edema , + weight dose of lasix given, weaning 02 went into afib this afternoon, now on amiodarone protocol 07/27 converted to NSR on oral amiodarone additional lasix today eval for dc in am on room air Pt Condition on Discharge: Good Discharge Disposition: Disch w/ Home Health Serv Discharge Instructions DIET: Follow Instructions for: Heart Healthy Diet Activities you can perform: Full Weight Bearing, Shower Only-No Bath Activities to avoid: Strenuous Activity, Driving Additional Activity Instructio: no lifting > 8lbs or gallon of milk Follow up Referrals: Cardiology - [address] Marquis Bell [address] [facility] [address] PCP Follow-up - [address] Kim Jackson [address] [address] Surgical - 2 Weeks with Fani Raza New Medications: Furosemide (Lasix) 40 Mg Tab 40 MG PO DAILY for edema for 7 Days, #7 TAB 1 Refill Potassium Chloride ER (Potassium Chloride ER) 20 Meq Tab 20 MEQ PO DAILY for Electrolyte Replacement, #7 TAB 1 Refill Amiodarone (Amiodarone) 200 Mg Tab 400 MG PO Q8HR for heart rhythm, #40 TAB 0 Refills 400mg bid x 3 days, then 200mg bid x 3 days, then 200mg daily Clopidogrel (Plavix) 75 Mg Tab 75 MG PO DAILY for Blood Clot Prevention, #30 TAB 2 Refills Docusate Sodium (Dok) 100 Mg Cap 100 MG PO BID for Constipation, #60 CAP 0 Refills Hydrocodone/Acetaminophen (Hydrocodone-Acetamin 5-325 mg) 5 Mg-325 Mg Tablet 1 TAB PO Q4H PRN for PAIN SCALE 1 TO 5, #40 TAB 0 Refills Metoprolol Tartrate (Metoprolol Tartrate) 25 Mg Tab 25 MG PO Q12HR for Blood Pressure Management, #60 TAB hold HR<60 SBP<100 Multiple Vitamins W/ Minerals (Thera M Plus) 1 Tab 1 TAB PO DAILY for multi vitamin, #30 TAB 2 Refills Continued Medications: Aspirin DR (Aspirin EC) 81 Mg Tabdr 81 MG PO DAILY, TAB 0 Refills Cetirizine HCl (Zyrtec) 10 Mg Capsule 1 CAP PO DAILY PRN for ALLERGIES Famotidine (Pepcid) 20 Mg Tab 10 MG PO BID PRN for REFLUX, #60 TAB 0 Refills Ibuprofen (Ibuprofen) 400 Mg Tab 400 MG PO Q8H PRN for PAIN SCALE 0-3 OR TEMP> 100.5F, TAB 0 Refills Levothyroxine (Levothyroxine) 50 Mcg Tab 50 MCG PO DAILY for Thyroid, #30 TAB 0 Refills Simvastatin (Simvastatin) 40 Mg Tab 40 MG PO HS for Cholesterol Management, #30 TAB 0 Refills Discontinued Medications: Lisinopril (Lisinopril) 10 Mg Tab 10 MG PO DAILY, #30 TAB 0 Refills Fani Raza Jul 27, 2017 15:50
[2017-07-27] MEDS: AMIODARONE 200 MG TAB PO SCH (15:57)
[2017-07-27] MEDS ORDERED: FUROSEMIDE 40 MG/4 ML VIAL IV PUSH ONE (16:15)
[2017-07-27] MEDS ORDERED: POTASSIUM CHLORIDE 20 MEQ CONTROLLED RELEASE TAB PO ONE (16:15)
--- NOTE | 2017-07-27 19:51 | EKG ---
Date Performed: 07/26/2017 Time Performed: 15:56:00 PTAGE: 72 years EKG: Atrial fibrillation with rapid ventricular response Right bundle branch block Generalized l ow QRS voltages Since previous tracing, no significant change noted Abnormal ECG PREVIOUS TRACING : 07/25/2017 05.22 DOCTOR: Vito Rahman Interpretating Date/Time 07/27/2017 19:49:32
[2017-07-27] MEDS: PRAVASTATIN SOD 80 MG TAB PO SCH (20:47)
[2017-07-27] MEDS: SENNOSIDES 8.6 MG TAB PO SCH (20:48)
[2017-07-28] VITALS (10 sets, daily range): BP systolic 130–132; BP diastolic 69–80; PULSE 76–104; RESP 18–20; TEMP 97.8–98.1; O2SAT 96–97
[2017-07-28] MEDS: AMIODARONE 200 MG TAB PO SCH ×2 (00:03→09:09)
--- NOTE | 2017-07-28 04:27 | RADRPT ---
EXAM DATE/TIME: 07/28/2017 03:56 [place] COMPARISON: CHEST SINGLE AP, July 25, 2017, 3:19. INDICATIONS : Shortness of breath, interval removal of mediastinal chest tube and left-sided chest tube as well as central venous line. possible pneumothorax. MEDICAL HISTORY : Hypertension. Hypercholesterolemia. SURGICAL HISTORY : CABG. ENCOUNTER: Subsequent ACUITY: 4 - 6 days PAIN SCORE: 3/10 LOCATION: Bilateral chest FINDINGS: A single AP semierect view of the chest was obtained and demonstrates interval removal of the right i nternal jugular central venous line, mediastinal chest tube and left-sided chest tube with no pneumot horax. The patient is status post median sternotomy. The heart size remains within normal limits with no perihilar edema. There is mild atelectasis and/or scarring at the left lung base. The left costop hrenic angle remains mildly blunted. CONCLUSION: 1. Interval removal of mediastinal chest tube and left-sided chest tube with no pneumothorax. 2. Interval removal of right internal jugular central venous line. 3. Mild atelectasis and or scarring remains the left lung base with apparent small left effusion. Chris Lara MD on July 28, 2017 at 4:23 Board Certified Radiologist. This report was verified electronically.
[2017-07-28] MEDS: LEVOTHYROXINE SODIUM 50 MCG TAB PO SCH (05:20)
[2017-07-28] MEDS: PANTOPRAZOLE SOD 40 MG DELAYED RELEASE TAB PO SCH (05:20)
[2017-07-28] MEDS: INSULIN ASPART SUPPLEMENTAL SCALE SQ SCH (08:00)
[2017-07-28] MEDS: SODIUM CHLORIDE 0.9% FLUSH 10 ML FLUSH IV FLUSH SCH (09:00)
[2017-07-28] MEDS: DOCUSATE SODIUM 100 MG CAP PO SCH (09:00)
[2017-07-28] MEDS: POLYETHYLENE GLYCOL 17 GM PKG PO SCH (09:00)
[2017-07-28] MEDS: MAGNESIUM HYDROXIDE SUSP 30 ML CUP PO SCH (09:00)
[2017-07-28] MEDS: ASPIRIN 81 MG CHEW TAB PO SCH (09:09)
[2017-07-28] MEDS: MULTIVITAMINS/MINERALS THERAPEUTIC TAB PO SCH (09:09)
[2017-07-28] MEDS: METOPROLOL TARTRATE 25 MG TAB PO SCH (09:09)
[2017-07-28] MEDS: POTASSIUM PHOSPHATE MONOBASIC 500 MG TAB PO SCH (09:09)
[2017-07-28] MEDS: ACETAMINOPHEN/HYDROcodone 325 MG/5 MG TAB PO PRN (09:10)
[2017-07-28] MEDS: CLOPIDOGREL 75 MG TAB PO SCH (09:10)
== END 2017-07-28 11:02 | disposition home health service (06) | DRG 236 ==
LOC: HSDI 05:18 → EDUNIT# 07:30 → HCVI 13:00 → HCPC 07-25 08:45
PROVIDERS: ADMIT Thoracic Surgery (Cardiothoracic Vascular Surgery); ATTEND Thoracic Surgery (Cardiothoracic Vascular Surgery)
PROC: 06BP4ZZ Excision of Right Saphenous Vein, Percutaneous Endoscopic Approach (ICD-10-PCS; 2017-07-24)
PROC: 02100Z9 Bypass Coronary Artery, One Artery from Left Internal Mammary, Open Approach (ICD-10-PCS; principal; 2017-07-24 07:40)
PROC: 021209W Bypass Coronary Artery, Three Arteries from Aorta with Autologous Venous Tissue, Open Approach (ICD-10-PCS; 2017-07-24 07:40)
DX: I25.10 Atherosclerotic heart disease of native coronary artery without angina pectoris (principal); I48.91 Unspecified atrial fibrillation; I45.10 Unspecified right bundle-branch block; E03.9 Hypothyroidism, unspecified; E78.5 Hyperlipidemia, unspecified; I10 Essential (primary) hypertension; M19.90 Unspecified osteoarthritis, unspecified site
CPT/HCPCS: 36415; 71045; 76937; 80048; 82948; 83735; 84100; 84443; 85025; 85027; 86850; 86900; 86901; 86920; 93005; 93318; 94002; 94150; 94640; 94664; 94667; 94668; C1768; J0131; J0282; J1644; J1815; J1817; J1885; J1940; J2250; J2370; J2440; J2720; J2930; J3010; J3370; J3475; J3480; J7040; J7050; J7060; J7120; P9045